=== PATIENT | male | born 1940 | race Caucasian/White ===

== ENCOUNTER → 2016-12-30 | Outpatient (CLI) | payer MEDICARE ==
[~2016-12-30] MED LIST: ACE65ERTAB PO; ASPI81TA11 PO; CARB1TAB20 PO; GABA-279 PO; OXYC-517 PO; SMZ-800T PO; TAMS0.4C2 PO
--- NOTE | 2016-12-30 11:57 | RADONC ---
RADIATION ONCOLOGY FOLLOWUP NOTE DATE: 12/30/2016 CHART NUMBER: [id number] DIAGNOSIS: Prostate cancer. STAGE: II, [id number] ECOG PERFORMANCE STATUS: 0 FOLLOWUP NOTE: Mr. 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 The patient presents today reporting that he is doing quite well with no complaints at this time related to his radiation therapy or disease. He is having no urinary or bowel difficulties, and no bone pain. REVIEW OF SYSTEMS: The patient's review of systems is noncontributory. He denies nausea, vomiting, fevers, chills, night sweats, diplopia, headaches, anxiety or depression, anorexia, weight loss, visual disturbances, chest pain, urinary or bowel difficulties, bone pain or neurological problems. PHYSICAL EXAMINATION: The patient is a well-developed, well-nourished male in no acute distress. HEENT exam is normocephalic, atraumatic. Extraocular movements are intact. There is no palpable cervical, supraclavicular, infraclavicular, axillary, or inguinal lymphadenopathy present. Lungs are clear to auscultation and percussion. Heart has a regular rate and rhythm. Abdomen is benign with no hepatosplenomegaly, masses, or tenderness. Rectal examination reveals a normal anal sphincter tone. His prostate is smooth with no evidence of nodularity. Skeletal examination reveals no tenderness to pressure or percussion of the bony skeleton. Extremities reveal no clubbing, cyanosis, or edema. Neurologic exam is grossly intact as is the remainder of the physical examination. ASSESSMENT: The patient is clinically DUDLEY at this time and will be seen by us again in 1 year for further followup. He will also continue be followed by his other physicians as well. cc: Miko Lopez MD *Dr. Wilks
== END ==
LOC: M ONCR 10:57
PROVIDERS: ATTEND Radiology Radiation Oncology
DX: C61 Malignant neoplasm of prostate (principal)
CPT/HCPCS: 36415; 84153; G0463

== ENCOUNTER → 2018-01-11 | Outpatient (CLI) | payer MEDICARE ==
[2018-01-11 09:50] LABS: PROSTATIC SPECIFIC AG MONITOR 0.24 NG/ML (< 4.0)
== END ==
LOC: M LAB 09:03
DX: Z08 Encounter for follow-up examination after completed treatment for malignant neoplasm (principal); Z85.46 Personal history of malignant neoplasm of prostate
CPT/HCPCS: 84153

== ENCOUNTER → 2018-03-16 | Outpatient (CLI) | payer MEDICARE | LOC: M ONCR 10:28 | DX: C61 Malignant neoplasm of prostate (principal) | CPT/HCPCS: G0463 ==

== ENCOUNTER → 2018-11-03 | Outpatient (CLI) | payer MEDICARE ==
[~2018-11-03] MED LIST changes: +ASPI-225 PO; -ASPI81TA11 PO; +GABA-1171 PO; -GABA-279 PO; -SMZ-800T PO; +SULF1TAB93 PO
[2018-11-03 19:34] LABS: APPEARANCE, URINE CLEAR (CLEAR); BACTERIA, URINE AUTO NEGATIVE (NEGATIVE); BILIRUBIN, URINE AUTO NEGATIVE (NEGATIVE); BLOOD, URINE BLOOD NEGATIVE (NEGATIVE); COLOR, URINE YELLOW (YELLOW); GLUCOSE, URINE (UA) AUTO NEGATIVE (NEGATIVE); KETONE, URINE AUTO NEGATIVE (NEGATIVE); LEUKOCYTE ESTERASE, URINE AUTO NEGATIVE (NEGATIVE); NITRITE, URINE AUTO NEGATIVE (NEGATIVE); PROTEIN, URINE AUTO NEGATIVE (NEGATIVE); RBC, URINE AUTO 3 /HPF (0-3); SPECIFIC GRAVITY URINE AUTO 1.011 (1.002-1.035); SQUAMOUS EPITHELIAL CELL UR AU 0 /HPF (0-6); UROBILINOGEN, URINE AUTO 0.2 mg/dL (0.0-2.0); WBC, URINE AUTO 0 /HPF (0-3)
== END ==
LOC: M SMT 15:08
PROVIDERS: ATTEND Nurse Practitioner Women's Health
DX: R35.0 Frequency of micturition (principal); Z85.46 Personal history of malignant neoplasm of prostate
CPT/HCPCS: 51798; 81001; 84153; 87086; G0463

== ENCOUNTER → 2019-05-23 | Outpatient (REF) | payer MEDICARE | LOC: M SMT 12:44 | PROVIDERS: ATTEND Urology | DX: Z85.46 Personal history of malignant neoplasm of prostate (principal) | CPT/HCPCS: 36415; 84153; G0463 ==

== ENCOUNTER → 2021-06-11 | Outpatient (CLI) | payer MEDICARE ==
[~2021-06-11] MED LIST changes: -ASPI-225 PO; +ASPI81TA78 PO; +BACTDSTA PO; -SULF1TAB93 PO
== END ==
LOC: M PLALAB 10:35
PROVIDERS: ATTEND Urology
DX: Z85.46 Personal history of malignant neoplasm of prostate (principal)

== ENCOUNTER 2023-07-27 07:13 | Day surgery (SDC) | payer OTHER, MEDICARE ==
[~2023-07-27] VITALS: Ht 182.9 cm; Wt 82.1 kg
[~2023-07-27 07:13] MED LIST changes: +LEVO112T2 PO; +LIDOCAINE 2% 100MG/5ML SDV (FOR ANES.) As Ordered ONE; +NS 1,000 ML IV ONE; +propofoL 200 MG/20 ML VIAL As Ordered ONE
[2023-07-27 09:00] VITALS: TEMP 97.5
[2023-07-27 09:20] VITALS: BP 152/62; O2SAT 94
== END 2023-07-27 09:24 | disposition home or self-care (01) ==
LOC: M OPP 07:13
PROVIDERS: ATTEND Internal Medicine Gastroenterology
DX: Z12.11 Encounter for screening for malignant neoplasm of colon (principal); Z86.010 Personal history of colon polyps; Z80.0 Family history of malignant neoplasm of digestive organs; D12.4 Benign neoplasm of descending colon; K57.30 Diverticulosis of large intestine without perforation or abscess without bleeding; K62.7 Radiation proctitis; K64.8 Other hemorrhoids; G47.30 Sleep apnea, unspecified; Z79.1 Long term (current) use of non-steroidal anti-inflammatories (NSAID); Z79.890 Hormone replacement therapy; Z79.891 Long term (current) use of opiate analgesic; Z79.899 Other long term (current) drug therapy